=== PATIENT | male | born 1985 | race Caucasian/White ===

== ENCOUNTER 2017-05-16 21:02 | Emergency (ER) | payer OTHER ==
[2017-05-16 21:33] VITALS: BP 125/90; PULSE 85; TEMP 98.4; BMI 24.3
[2017-05-16] MEDS ORDERED: ONDANSETRON 4 MG/2 ML VIAL IVPUSH ONE (22:17)
[2017-05-16] MEDS ORDERED: morphine CARPU-JECT 4 MG/1 ML DISP.SYRIN IVPUSH ONE (22:17)
[2017-05-16] MEDS ORDERED: SODIUM CHLORIDE 1,000 ML IV STA (22:17)
[2017-05-16] MEDS ORDERED: ONDANSETRON 4 MG/2 ML VIAL ONE (22:23)
[2017-05-16] MEDS ORDERED: morphine CARPU-JECT 4 MG/1 ML DISP.SYRIN ONE (22:23)
[2017-05-16 22:43] LABS: BASOPHIL 1.4 % (0-2.0); EOSINOPHIL 2.3 % (0-4.5); MCH 26.7 pg (25.7-33.7); MCHC 34.2 g/dl (32.0-35.9); MEAN CELL VOLUME 78.1 fl (80-96); MEAN PLT VOLUME 7.6 fl (7.5-11.1); NEUTROPHILS 44.8 % (42.8-82.8); PLATELET COUNT 303 K/MM3 (134-434); RDW 13.9 % (11.9-15.9); WHITE BLOOD COUNT 9.7 K/mm3 (4.0-10.0)
--- NOTE | 2017-05-16 22:43 | PDOC ---
History of Present Illness - General Chief Complaint: Pain Stated Complaint: UPPER RIGHT ABD PAIN Time Seen by Provider: 05/16/17 21:50 History Source: Patient Exam Limitations: No Limitations - History of Present Illness Travel History: No Initial Comments: 05/16/17 22:38 31yo Male patient w/ PmHx: GERD presents to ED c/o Right sided abdominal pain. Patient states being treated for food poisoning last wee at [facility] and diagnosed with gastroenteritis. Patient states he follow up with GI (Dr. Alvarado) 2 days ago, and was told there were no findings, but if symptoms persist or got worse, return to emergency department for further evaluation. Associated Nausea, Vomiting, and Chills. He denies any other complaints at this time. Timing/Duration: reports: constant. denies: getting worse, changing over time, intermittent, resolved prior to arrival, gone now, other Quality: reports: severe. denies: mild, moderate, aching, burning, cramping, dullness, fullness, sharpness, stabbing, throbbing, other Abdominal Pain Onset Location: reports: RUQ, RLQ. denies: LUQ, LLQ, epigastric , periumbilical, suprapubic, generalized abdomen, flank, unknown, other Pain Radiation: reports: epigastric. denies: no radiation, RUQ, LUQ, RLQ, LLQ, periumbilical, flank, groin, scapula, shoulder, chest, back, other Activities at Onset: reports: no specific activity Treatment Prior to Arrive: worse with: analgesics, antacids, cold pack, heat, laxative, enema, other Aggravating Factors: worse with: None, Defecation, Eating, Emotional upset, Exertion, [place], Movement, Voiding, Change in position Alleviating Factors: worse with: None, Belching, Shallow Breathing, Defecation, Eating, Holding Breath, Passing Gas, Change in Position, Rest, Voiding, Vomiting Past History - Travel Traveled outside of the country in the last 30 days: No Close contact w/someone who was outside of country & ill: No - Past Medical History Allergies/Adverse Reactions: Allergies Allergy/AdvReac Type Severity Reaction Status Date / Time erythromycin base Allergy Hives Verified 05/16/17 21:23 oseltamivir phosphate Allergy Difficulty Verified 05/16/17 21:23 [From Tamiflu] Breathing Penicillins Allergy Swelling Verified 05/16/17 21:23 Home Medications: Ambulatory Orders Oxycodone HCl/Acetaminophen [Percocet 5-325 mg Tablet] 1 tab PO Q6H PRN #20 tablet MDD 4 tab 05/17/17 Anemia: No Asthma: No Cancer: No Cardiac Disorders: No CVA: No COPD: No CHF: No Dementia: No Diabetes: No GI Disorders: Yes (GERD) Disorders: No HTN: No Hypercholesterolemia: Yes (TAKING NO MEDS) Liver Disease: No Seizures: No Thyroid Disease: No - Surgical History Abdominal Surgery: No Appendectomy: No Cardiac Surgery: No Cholecystectomy: No Lung Surgery: No Neurologic Surgery: No Orthopedic Surgery: No - Immunization History Immunization Up to Date: Yes - Suicide/Smoking/Psychosocial Hx Smoking Status: No Smoking History: Never smoked Have you smoked in the past 12 months: No Number of Cigarettes Smoked Daily: 0 Information on smoking cessation initiated: No Hx Alcohol Use: No Drug/Substance Use Hx: No Substance Use Type: None Hx Substance Use Treatment: No Abd/GI Specific PMHX - Complaint Specific PMHX Colitis: No Diverticulitis: No Gall Bladder Disease: No GERD: No Hepatitis: No Irritable Bowel Synd (IBS): No Pancreatitis: No GI Ulcer Disease: No Review of Systems - Review of Systems Able to Perform ROS?: Yes Is the patient limited Peruvian proficient: No Respiratory: No: Cough, Orthopnea, Shortness of Breath, Stridor, Wheezing Cardiac (ROS): No: Chest Pain, Palpitations, Syncope, Chest Tightness ABD/GI: Yes: Abdominal Distended, Nausea, Poor Appetite, Vomiting, Abdominal cramping. No: Constipated, Diarrhea, Poor Fluid Intake : No: Burning, Dysuria, Discharge, Flank Pain, Hematuria Musculoskeletal: No: Back Pain All Other Systems: Reviewed and Negative *Physical Exam - Vital Signs Last Vital Signs Temp Pulse Resp BP Pulse Ox 98.4 F 85 18 125/90 97 05/16/17 21:05/16/17 21:17 05/16/17 21:05/16/17 21:05/16/17 21:17 - Physical Exam General Appearance: Yes: Nourished, Appropriately Dressed, Moderate Distress. No: Apparent Distress, Mild Distress, Severe Distress Neck: positive: Trachea midline, Supple. negative: Stridor, Lymphadenopathy (R) , Lymphadenopathy (L) Respiratory/Chest: positive: Lungs Clear, Normal Breath Sounds. negative: Chest Tender, Respiratory Distress, Accessory Muscle Use, Labored Respiration, Rapid RR, Paradoxal Breathing, Stridor, Wheezing Cardiovascular: positive: Regular Rhythm, Regular Rate Gastrointestinal/Abdominal: positive: Tender, Soft, Decreased BS, Distended, Guarding, Rebound, Tenderness. negative: Normal Bowel Sounds, Increased Bowel Sounds Musculoskeletal: positive: Normal Inspection. negative: CVA Tenderness Extremity: positive: Normal Capillary Refill, Normal Inspection, Normal Range of Motion. negative: Pedal Edema, Swelling, Calf Tenderness, Erythema, Inflammation Integumentary: positive: Normal Color, Dry, Warm Neurologic: positive: model technician II-XII NML intact, Fully Oriented, Alert, Normal Mood/ Affect, Normal Response, Motor Strength 12/20 ED Treatment Course - LABORATORY CBC & Chemistry Diagram: 05/16/17 22:30 05/16/17 22:30 - RADIOLOGY Radiology Studies Ordered: Category Date Time Status ABDOMEN US -LIMITED [US] Stat Ultrasound 05/16/17 22:01 Ordered PELVIS(OTHER) US [US] Stat Ultrasound 05/16/17 22:01 Ordered *DC/Admit/Observation/Transfer Diagnosis at time of Disposition: Acute mesenteric adenitis - Discharge Dispostion Disposition: HOME Condition at time of disposition: Improved Admit: No - Prescriptions Prescriptions: Oxycodone HCl/Acetaminophen [Percocet 5-325 mg Tablet] 1 tab PO Q6H PRN #20 tablet MDD 4 tab PRN Reason: Severe Pain - Referrals Referrals: Shan Blandon MD [Primary Care Provider] - Lam Alvarado MD [Staff Physician] - - Patient Instructions Printed Discharge Instructions: DI for Mesenteric Adenitis-Adult Additional Instructions: Follow up with Dr. Alvarado this week for further evaluation. Take medications as prescribed. Motrin or Tylenol for mild pain as needed. Percocet for severe pain not relieved by [id number] medications. Drink plenty fluids. rest. Return if worsening of symptoms. Print Language: ARMENIAN - Post Discharge Activity Forms/Work/School Notes: Back to Work
[2017-05-16 22:46] LABS: URINE APPEARANCE CLEAR; URINE BILIRUBIN NEGATIVE (NEGATIVE); URINE BLOOD NEGATIVE (NEGATIVE); URINE COLOR LTYELLOW; URINE GLUCOSE (UA) NEGATIVE (NEGATIVE); URINE KETONE NEGATIVE (NEGATIVE); URINE LEUK ESTERASE NEGATIVE (NEGATIVE); URINE NITRITE NEGATIVE (NEGATIVE); URINE PROTEIN NEGATIVE (NEGATIVE); URINE UROBILINOGEN NEGATIVE mg/dL (0.2-1.0)
--- NOTE | 2017-05-16 22:58 | PDOC ---
*Physical Exam - Vital Signs Last Vital Signs Temp Pulse Resp BP Pulse Ox 98.4 F 85 18 125/90 97 05/16/17 21:17 05/16/17 21:17 05/16/17 21:17 05/16/17 21:17 05/16/17 21:17 ED Treatment Course - LABORATORY CBC & Chemistry Diagram: 05/16/17 22:30 05/16/17 22:30 - ADDITIONAL ORDERS Additional order review: Laboratory Results 05/16/17 22:30 Urine Color Ltyellow Urine Appearance Clear Urine pH 7.0 Urine Protein Negative Urine Glucose (UA) Negative Urine Ketones Negative Urine Blood Negative Urine Nitrite Negative Urine Bilirubin Negative Urine Urobilinogen Negative 05/16/17 22:30 RBC 5.52 MCV 78.1 L MCHC 34.2 RDW 13.9 MPV 7.6 Neutrophils % 44.8 Lymphocytes % 45.2 H Monocytes % 6.3 Eosinophils % 2.3 Basophils % 1.4 - Medications Given in the ED: ED Medications Discontinued Medications Generic Name Dose Route Start Last Admin Trade Name Freq PRN Reason Stop Dose Admin Morphine Sulfate 4 mg 05/16/17 22:17 05/16/17 22:47 Morphine Injection - IVPUSH 05/16/17 22:18 Not Given ONCE ONE Ondansetron HCl 4 mg 05/16/17 22:17 05/16/17 22:47 Zofran Injection IVPUSH 05/16/17 22:18 4 mg ONCE ONE Administration Medical Decision Making - Medical Decision Making 05/16/17 22:58 The patient was seen and evaluated in conjunction with OLY Dumont under my direct supervision, ancillary studies were reviewed. I agree with the plan as outlined by OLY Dumont. *DC/Admit/Observation/Transfer Diagnosis at time of Disposition: Acute mesenteric adenitis - Discharge Dispostion Disposition: HOME Condition at time of disposition: Good - Prescriptions Prescriptions: Oxycodone HCl/Acetaminophen [Percocet 5-325 mg Tablet] 1 tab PO Q6H PRN #20 tablet MDD 4 tab PRN Reason: Severe Pain - Referrals Referrals: Shan Blandon MD [Primary Care Provider] - Lam Alvarado MD [Staff Physician] - - Patient Instructions Printed Discharge Instructions: DI for Mesenteric Adenitis-Adult Additional Instructions: Follow up with Dr. Alvarado this week for further evaluation. Take medications as prescribed. Motrin or Tylenol for mild pain as needed. Percocet for severe pain not relieved by [id number] medications. Drink plenty fluids. rest. Return if worsening of symptoms. Print Language: PERSIAN - Post Discharge Activity Forms/Work/School Notes: Back to Work
[2017-05-16 23:06] LABS: ALBUMIN 4.2 g/dl (3.4-5.0); ANION GAP 9 (8-16); BILIRUBIN,DIRECT 0.1 mg/dL (0.0-0.2); BILIRUBIN,TOTAL 0.3 mg/dL (0.2-1.0); CALCIUM 8.6 mg/dL (8.5-10.1); CO2 29 mmol/L (21-32); CREATININE 0.9 mg/dL (0.7-1.3); GLUCOSE,RANDOM 109 mg/dL (74-106); SGOT/AST 32 U/L (15-37); SGPT/ALT 92 U/L (12-78); TOT PROT 7.4 g/dl (6.4-8.2)
[2017-05-16 23:07] LABS: ALK PHOS 124 U/L (45-117); AMYLASE 59 U/L (25-115)
[2017-05-16 23:09] LABS: CPK 99 IU/L (39-308); TROPONIN I < 0.02 ng/ml (0.00-0.05)
[2017-05-17] MEDS ORDERED: HYDROmorphone HCL CARPU-JECT 1 MG/1 ML DISP.SYRIN IVPUSH ONE (03:06)
[2017-05-17] MEDS ORDERED: HYDROmorphone HCL CARPU-JECT 1 MG/1 ML DISP.SYRIN ONE (03:09)
== END 2017-05-17 05:10 | disposition home or self-care (01) ==
LOC: JER 21:02
PROC: 3E033NZ Introduction of Analgesics, Hypnotics, Sedatives into Peripheral Vein, Percutaneous Approach (ICD-10-PCS; principal; 2017-05-16)
PROC: 3E033GC Introduction of Other Therapeutic Substance into Peripheral Vein, Percutaneous Approach (ICD-10-PCS; 2017-05-16)
PROC: 3E0337Z Introduction of Electrolytic and Water Balance Substance into Peripheral Vein, Percutaneous Approach (ICD-10-PCS; 2017-05-16)
DX: L04.8 Acute lymphadenitis of other sites (principal); K21.9 Gastro-esophageal reflux disease without esophagitis
CPT/HCPCS: 36415; 74176-TC; 76705-TC; 76856-TC; 80048; 80076; 81003; 82150; 84484; 85025; 86140; 99282-25

== ENCOUNTER 2018-07-01 04:50 | Emergency (ER) | payer OTHER ==
--- NOTE | 2018-07-01 04:57 | PDOC ---
History of Present Illness - General Stated Complaint: R HAND PAIN Time Seen by Provider: 07/01/18 04:57 History Source: Patient - History of Present Illness Initial Comments: 07/01/18 05:17 The patient is a 32 year old male with no reported significant PMH who presents to our ED c/o R 3rd digit numbness and pain. Patient states he was opening his wallet today when he suddenly felt a vein pop in his R 3rd digit. The distal end of the digit turned purple. Patient massaged the digit and it returned to its normal color, however as pain and numbness persisted he presented to urgent care where a R hand XR showed no acute fracture. Denies any trauma. No systemic signs of infection including fever/chills. 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 Allergy: Erythromycin, Oseltamavir, Penicillin Surgical: denies Social: denies toxic habits PMD: Dr. Blandon Past History - Past Medical History Allergies/Adverse Reactions: Allergies Allergy/AdvReac Type Severity Reaction Status Date / Time erythromycin base Allergy Hives Verified 07/01/18 06:25 oseltamivir phosphate Allergy Difficulty Verified 07/01/18 06:25 [From Tamiflu] Breathing Penicillins Allergy Swelling Verified 07/01/18 06:25 Home Medications: Ambulatory Orders Omeprazole 20 mg PO DAILY 07/01/18 Anemia: No Asthma: No Cancer: No Cardiac Disorders: No CVA: No COPD: No CHF: No Dementia: No Diabetes: No GI Disorders: Yes (GERD) Disorders: No HTN: No Hypercholesterolemia: Yes (TAKING NO MEDS) Liver Disease: No Seizures: No Thyroid Disease: No - Surgical History Abdominal Surgery: No Appendectomy: No Cardiac Surgery: No Cholecystectomy: No Lung Surgery: No Neurologic Surgery: No Orthopedic Surgery: No - Immunization History Immunization Up to Date: Yes - Suicide/Smoking/Psychosocial Hx Smoking Status: No Smoking History: Never smoked Have you smoked in the past 12 months: No Number of Cigarettes Smoked Daily: 0 Hx Alcohol Use: No Drug/Substance Use Hx: No Substance Use Type: None Hx Substance Use Treatment: No *Physical Exam - Physical Exam Comments: 07/01/18 05:26 R 3rd digit: DIP TTP, erythematous @ DIP; edematous @ PIP 2+ radial pulse CV: S1/S2, no M/R/G Lungs CLTA B/L Abdomen soft, no TTP, (+) BS ED Treatment Course - LABORATORY CBC & Chemistry Diagram: 07/01/18 05:05 07/01/18 05:05 Medical Decision Making - Medical Decision Making 07/01/18 05:27 32 year old male with acute onset of R 3rd digit pain. VS unremarkable. Mild erythema of third digit @ PIP. XRay at urgent care showed no osteo/fracture. Differential includes: (1) ? arthritis (unusual presentation of single digit); ( 2) felon, however, no known trauma and less likely to be felon requiring acute intervention; (3) PIP involvement also less likely to be herpetic christina; (4) ? cellulitis, however PE makes this less likely. Will obtain basic labs to r/ o electrolyte abnormality. ESR/CRP to r/o active infectious process. Motrin for pain. Reassess. 07/01/18 06:10 No leukocytosis CMP pending 07/01/18 06:26 Patient reassessed @ bedside; symptomatically improved s/p NSAID Notes part of the reason he presented to the ED this a.m. was he was very concerned he might be having a heart attack after looking up his symptoms on WebMD. 07/01/18 06:55 CRP, ESR wnL CMP unremarkable Patient remains hemodynamically stable, no active infectious process as per ESR/ CRP, symptomatically improved with NSAID. Low clinical suspicion for necessity of acute emergent intervention. Patient able to see PMD today for further evaluation. Will discharge with return precautions. I discussed the physical exam findings, ancillary test results and final diagnoses with the patient. I answered all of the patient's questions. The patient was satisfied with the care received and felt comfortable with the discharge plan and treatment plan. The patient will return to the Emergency Department with any new, persistent or worsening symptoms. *DC/Admit/Observation/Transfer Diagnosis at time of Disposition: Finger pain, right - Discharge Dispostion Disposition: HOME Condition at time of disposition: Good Decision to Admit order: No - Referrals Referrals: Shan Blandon MD [Primary Care Provider] - - Patient Instructions Printed Discharge Instructions: DI for Joint Pain Additional Instructions: You were evaluated for your finger pain and numbness. All of your labs showed no concerning findings. At this time you are safe for discharge home. Please make an appointment to follow-up with Dr. Blandon today. Return to the Emergency Department for any new/worsening/concerning symptoms. - Post Discharge Activity
--- NOTE | 2018-07-01 05:03 | PDOC ---
Attending Attestation - Physicial Exam PE: 07/01/18 05:45 GENERAL: The patient is in no acute distress. HEAD: Normal with no signs of trauma. EYES: PERRLA, EOMI, sclera anicteric, conjunctiva clear. ENT: Ears normal, nares patent, oropharynx clear without exudates. Moist mucous membranes. NECK: Normal range of motion, supple without lymphadenopathy, JVD, or masses. LUNGS: Breath sounds equal, clear to auscultation bilaterally. No wheezes, and no crackles. HEART:Regular rate and rhythm, normal S1 and S2 without murmur, rub or gallop. ABDOMEN: Soft, nontender, normoactive bowel sounds. No guarding, no rebound. No masses palpable. +EXTREMITIES: Right finger: Right DIP palmar aspect, erythematous and mildly edematous. No streaking. NEUROLOGICAL: Cranial nerves II through XII grossly intact. Normal speech. No focal neurological deficits. MUSCULOSKELETAL: Back non-tender to palpation, no CVA tenderness SKIN: Warm, Dry, normal turgor, no rashes or lesions noted. <Barb Javier - Last Filed: 07/01/18 05:45> - Resident Resident Name: Marjorie Garcia - ED Attending Attestation I have performed the following: I have examined & evaluated the patient, The case was reviewed & discussed with the resident, I agree w/resident's findings & plan, Exceptions are as noted - HPI HPI: 07/01/18 05:18 Mr. Trivedi is a 32 yo RHD M presenting to the ER with a complaint of right middle ifinger pain Symptoms began a day ago Was seen at Urgent Care, no trauma, Xray performed, reportedly negative Pt continues to have pain Awoke early this morning with finger pain No fevers or chills No prior episodes like this - Medical Decision Making 07/01/18 05:24 Middle finger swelling and pain Arthritis vs hematoma Clinical Impression: finger pain, initial presentation <Stephanie Tran - Last Filed: 07/04/18 21:08> Attestations - Attestations 07/01/18 05:46 Documentation prepared by Barb Javier, acting as bio medical technician for Stephanie Tran MD. <Barb Javier - Last Filed: 07/01/18 05:45>
[2018-07-01 05:12] VITALS: BP 127/84; PULSE 78; TEMP 97.4; BMI 28.1
[2018-07-01] MEDS ORDERED: IBUPROFEN 400 MG TABLET (FP) PO ONE ×2 (05:28→05:59)
[2018-07-01 05:51] LABS: BASO % 0.4 % (0-2.0); EOS % 2.4 % (0-4.5); HEMATOCRIT 44.5 % (35.4-49); LYMPH % 35.6 % (8-40); MCH 26.3 pg (25.7-33.7); MCHC 33.6 g/dl (32.0-35.9); MEAN CELL VOLUME 78.2 fl (80-96); MEAN PLT VOLUME 7.2 fl (7.5-11.1); MONO % 9.5 % (3.8-10.2); NEUT % 52.1 % (42.8-82.8); PLATELET COUNT 271 K/MM3 (134-434); RBC 5.69 M/mm3 (4.00-5.60); RDW 14.1 % (11.9-15.9); WHITE BLOOD COUNT 8.3 K/mm3 (4.0-10.0)
[2018-07-01 06:45] LABS: ALK PHOS 102 U/L (45-117); ANION GAP 6 MMOL/L (8-16); BILIRUBIN,TOTAL 0.7 mg/dL (0.2-1); BLOOD UREA NITROGEN 14 mg/dL (7-18); CALCIUM 8.5 mg/dL (8.5-10.1); CHLORIDE 106 mmol/L (98-107); CO2 26 mmol/L (21-32); CREATININE 0.7 mg/dL (0.55-1.3); GLUCOSE,RANDOM 96 mg/dL (74-106); POTASSIUM 4.1 mmol/L (3.5-5.1); SGOT/AST 19 U/L (15-37); SGPT/ALT 21 U/L (13-61); SODIUM 138 mmol/L (136-145); TOT PROT 7.3 g/dl (6.4-8.2)
[2018-07-01 10:50] LABS: ERYTHROCYTE SEDIMENTATION RATE 2 mm/hr (0-10)
== END 2018-07-01 07:00 | disposition home or self-care (01) ==
LOC: JER 04:50
DX: M79.644 Pain in right finger(s) (principal); E78.00 Pure hypercholesterolemia, unspecified; K21.9 Gastro-esophageal reflux disease without esophagitis
CPT/HCPCS: 36415; 80053; 85025; 85651; 86140; 99283-25